=== PATIENT | female | born 1995 | race Caucasian/White ===

== ENCOUNTER 2018-10-29 11:42 | Inpatient (IN) | payer BC ==
[~2018-10-29] VITALS: Ht 160 cm; Wt 61.7 kg
[2018-10-29 11:59] VITALS: Ht 160 cm; Wt 61.7 kg
--- NOTE | 2018-10-29 12:15 | NUR ---
DR LEDBETTER AT BEDSIDE FOR MSE
--- NOTE | 2018-10-29 12:30 | NUR ---
PT REPORTS C/O BLQ ABD PAIN "OVERNIGHT" WITH N/V AND URINARY FREQUENCY PT AAOX4 NO RESP DISTRESS NO OTHER SYMPTOM REPORTED. PT WAS PROVIDED WITH GOWN URINE COLLECTED AND DIPPED. PTS FAMILY AT BEDSIDE AWAITING MD ORDES WILL MONITOR
[2018-10-29 12:38] LABS: PLATELET COUNT 305 x10^3mcL (130-400); RED CELL DISTRIBUTION WIDTH 13.1 % (11.5-14.5)
[2018-10-29 12:46] LABS: BASOPHIL % 0 % (0-2)
[2018-10-29 13:02] LABS: CALCIUM 8.4 mg/dL (8.5-10.1); CARBON DIOXIDE 19.2 mmol/L (21-32); CHLORIDE SERUM 96 mmol/L (98-107); CREATININE SERUM 0.9 mg/dL (0.6-1.0); GFR1 > 60 mL/min; GLUCOSE SERUM 359 mg/dL (74-106); POTASSIUM SERUM 3.7 mmol/L (3.5-5.1); SODIUM SERUM 136 mmol/L (136-145)
[2018-10-29 13:02] LABS: microscopic required? NO
[2018-10-29 13:06] LABS: ALBUMIN 3.8 g/dL (3.4-5.0); ALKALINE PHOSPHATASE 100 U/L (46-116); ALT/SGPT 20 U/L (14-59); AST/SGOT 18 U/L (15-37); BILIRUBIN TOTAL 0.89 mg/dL (0.20-1.00); LIPASE 56 IU/L (73-393); TOTAL PROTEIN, SERUM 8.1 g/dL (6.4-8.2)
--- NOTE | 2018-10-29 13:32 | NUR ---
POC DISCUSSED WITH PT BY DR LEDBETTER PT TO BE ADMITTED. PT AGREED. WILL MONITOR
[2018-10-29] MEDS ORDERED: LANTUS SOLOS100 U/M1 SC (13:33)
[2018-10-29] MEDS ORDERED: HUMALOG100 U/ML (13:34)
[2018-10-29 13:49] LABS: UA SPECIFIC GRAVITY 1.025 (1.005-1.035); urine erythrocyte NEGATIVE (NEGATIVE)
--- NOTE | 2018-10-29 14:46 | NUR ---
PT COMFORTABLE NO DISTRESS VSS SINUS TACH ON CM. FAMILY AT BEDSIDE LOTION FOR LIPS PROVIDED PER PTS REQUEST. CALL LIGHT IN REACH INST TO CALL FOR ANY ASSISTANCE NEEDED WILL MONITOR
--- NOTE | 2018-10-29 14:58 | NUR ---
REPORT GIVEN TO MACK CRUZ RESUMING CARE OF PT IN TELE FLOOR
--- NOTE | 2018-10-29 15:41 | NUR ---
PT TRANSPORTED TO TELE FLOOR ON MANAGER CAFE NO DISTRESS MACK CRUZ RESUMING CARE OF PT IN TELE FLOOR, PT TRANSPORTED BY JAVIER CRUZ AND HERVE EMT VIA [facility]
--- NOTE | 2018-10-29 15:45 | NUR ---
RECEIVED PT VIA [facility] FROM E/D, ACCOMPANIED BY RN AND TRANSPORTER. PT A/A/O X 4, CALM, COOPERATIVE. PT ABLE TO AMBULATE FROM GUERNEY TO BED WITHOUT GAIT OR BALANCE IMPAIRMENT. ON TELE # 1, ST, HR 115, DENIES CHEST PAIN OR DISCOMFORT AT THIS TIME. NO RESPIRATORY DISTRESS NOTED. DENIES PAIN AT THIS TIME. IV SITE RH 20G, CDI. ORIENTED PT TO ROOM, BED CONTROLS, CALL LIGHT SYSTEM. PT VERBALIZED UNDERSTANDING. SIDE RAILS UP X 2, BED IN LOW POSITION. WILL ENDORSE TO ANTHONY GIRON.
[2018-10-29 16:17] LABS: CALCIUM 8.5 mg/dL (8.5-10.1); CARBON DIOXIDE 18.8 mmol/L (21-32); CHLORIDE SERUM 96 mmol/L (98-107); CREATININE SERUM 0.9 mg/dL (0.6-1.0); GFR1 > 60 mL/min; GLUCOSE SERUM 362 mg/dL (74-106); MAGNESIUM 1.8 mg/dL (1.8-2.4); PHOSPHOROUS 5.3 mg/dL (2.5-4.9); POTASSIUM SERUM 3.8 mmol/L (3.5-5.1); SODIUM SERUM 137 mmol/L (136-145)
[2018-10-29 16:26] VITALS: BP 98/47
--- NOTE | 2018-10-29 17:04 | NUR ---
PT C/O OF NAUSEA, MEDICATED PER EMAR.
--- NOTE | 2018-10-29 17:05 | NUR ---
PER DR GAUTHIER GIVE REGULAR INSULIN AT THIS TIME PER SLIDING SCALE
--- NOTE | 2018-10-29 17:13 | NUR ---
PT C/O OF PAIN, BP LOW, PER MD MEDICATE WITH TYLENOL AT THIS TIME. WILL CONTINUE TO MONITOR
--- NOTE | 2018-10-29 18:06 | NUR ---
PT RESTING IN BED WITH NO APPARENT SIGNS OF DISTESS. ON TELE, DENIES CHEST PAIN/PRESSURE/DIZZINESS/STANLEY. RESPIRATIONS EQUAL AND UNLABORED. ON RA, DENIES SOB. ABDOMEN SOFT AND NONTENDER AT THIS TIME. AMBULATORY. SKIN W/D/I. PT DENIES EXCESSIVE PAIN. IV PATENT AND INTACT. BED IN LOW POSIITON. FAMILY PRESENT AT BEDSIDE. WILL CONTINUE TO MONITOR
--- NOTE | 2018-10-29 19:30 | NUR ---
RECIEVED PATIENT AT START OF SHIFT AWAKE, A/O X4. NO SOB ON RA SATTING 99%, LUNGS CTAB. NO COMPLAINT OF PAIN. PATIENT IS ON TELE MONITOR #1 ST AT 112, LAST BP 98/47 (64). LAST BLOOD SUGAR WAS 226 FOR WHICH THE PATIENT RECIEVED 6 UNITS OF REG INSULIN FROM THE DAYSHIFT NURSE. POTTASIUM IS 3.7 IV TO RIGHT HAND INTACT AT 150 ML/HR NS. PATIENT IS AMBULATORY. PLAN IS TO TRANSFER PATIENT TO ICU FOR INSULIN IV ONCE A BED IS AVAILABLE. BED LOCKED AND IN LOWEST POSIITON. CALL LIGHT AND BEDSIDE TABLE WITHIN REACH. WILL CONTINUE TO MONITOR.
[2018-10-29 19:55] LABS: CALCIUM 7.5 mg/dL (8.5-10.1); CARBON DIOXIDE 16.5 mmol/L (21-32); CHLORIDE SERUM 105 mmol/L (98-107); CREATININE SERUM 0.8 mg/dL (0.6-1.0); GFR1 > 60 mL/min; GLUCOSE SERUM 176 mg/dL (74-106); MAGNESIUM 1.6 mg/dL (1.8-2.4); PHOSPHOROUS 1.8 mg/dL (2.5-4.9); SODIUM SERUM 137 mmol/L (136-145)
[2018-10-29 20:03] LABS: POTASSIUM SERUM 2.9 mmol/L (3.5-5.1)
--- NOTE | 2018-10-29 20:04 | NUR ---
RECIEVED CALL FROM LAB REPORTING POTTASIUM CRITICAL VALUE OF 2.9. DR. LAU WAS CALLED AND NOTOFIED AT 2015. NEW BLOOD SUGAR TAKEN AT 1999 IS 156. INSULIN SLIDING SCALE ON HOLD, NO COVERAGE GIVEN. NS INCREASED TO 250 ML/HR PER EMAR AND MD ORDER.
[2018-10-29 20:14] LABS: CHOLESTEROL/HDL RATIO 3.7
[2018-10-29 20:16] LABS: FREE T4 1.2 ng/dL (0.76-1.46); FREE THYROXINE INDEX 2.8 ug/dL (1.4-4.5); T4(THYROXINE) 7.4 ug/dL (4.7-13.3)
[2018-10-29 20:19] LABS: T3 TOTAL 0.68 ng/mL
[2018-10-29 20:35] VITALS: BP 95/43
--- NOTE | 2018-10-29 21:00 | NUR ---
REPORT GIVEN TO ICU, WILL PREPARE PATIENT FOR TRANSFER.
--- NOTE | 2018-10-29 21:20 | NUR ---
Received from [facility] room 240 via bed. Awake, alert and verbally responsive. No respiratory distress noted on room air. Denies pain at this time. Denies n/v. Normal sinus rhythm. Kept comfortable. Will cont.to monitor.
--- NOTE | 2018-10-29 21:34 | NUR ---
FSBS-158. no insulin coverage as ordered. IVF NS @250ml/hr infusing at this time.
--- NOTE | 2018-10-29 22:53 | NUR ---
Insulin drip protocol started. made aware re:blood sugars <200 at this time. Will cont.to monitor.
--- NOTE | 2018-10-29 23:46 | NUR ---
Asleep at this time. D5 0.45%NS @ 150ml/hr infusing. Denies pain. Will cont.to monitor.
[2018-10-30] VITALS: BP 101/57
--- NOTE | 2018-10-30 00:26 | NUR ---
DC ABG x3 STARTING AT 2336. PER DKA PROTOCOL; ONE INITIAL ABG NEEDED. DR. ALMANZAR NOTIFIED; OKAY TO DC 3 REMAINDER ABG ORDERS. WILL CONTINEU TO MONITOR PATIENT.
[2018-10-30 01:07] LABS: CALCIUM 7.4 mg/dL (8.5-10.1); CARBON DIOXIDE 17.9 mmol/L (21-32); CHLORIDE SERUM 106 mmol/L (98-107); CREATININE SERUM 0.7 mg/dL (0.6-1.0); GFR1 > 60 mL/min; GLUCOSE SERUM 186 mg/dL (74-106); MAGNESIUM 1.7 mg/dL (1.8-2.4); PHOSPHOROUS 2.2 mg/dL (2.5-4.9); POTASSIUM SERUM 3.2 mmol/L (3.5-5.1); SODIUM SERUM 138 mmol/L (136-145)
[2018-10-30 04:00] VITALS: BP 94/55
--- NOTE | 2018-10-30 04:10 | NUR ---
Asleep at this time. No significant change in condition noted. No s/s of hypo/hyperglycemia noted. Remained on insulin drip and blood sugars <200. Denies pain. In no apparent distress.
[2018-10-30 05:53] LABS: CALCIUM 8.1 mg/dL (8.5-10.1); CARBON DIOXIDE 22.1 mmol/L (21-32); CHLORIDE SERUM 109 mmol/L (98-107); CREATININE SERUM 0.6 mg/dL (0.6-1.0); GFR1 > 60 mL/min; GLUCOSE SERUM 160 mg/dL (74-106); MAGNESIUM 1.9 mg/dL (1.8-2.4); PHOSPHOROUS 1.5 mg/dL (2.5-4.9); SODIUM SERUM 140 mmol/L (136-145)
[2018-10-30 06:05] LABS: POTASSIUM SERUM 2.9 mmol/L (3.5-5.1)
[2018-10-30 07:00] LABS: PLATELET COUNT 255 x10^3mcL (130-400); RED CELL DISTRIBUTION WIDTH 12.6 % (11.5-14.5)
--- NOTE | 2018-10-30 07:42 | NUR ---
AOX4, BREATHING E/U, NAD. EATING BREAKFAST AT THIS TIME.
[2018-10-30 08:13] LABS: CALCIUM 7.7 mg/dL (8.5-10.1); CARBON DIOXIDE 24.7 mmol/L (21-32); CHLORIDE SERUM 111 mmol/L (98-107); CREATININE SERUM 0.7 mg/dL (0.6-1.0); GFR1 > 60 mL/min; GLUCOSE SERUM 107 mg/dL (74-106); SODIUM SERUM 142 mmol/L (136-145)
[2018-10-30 08:16] LABS: MAGNESIUM 1.8 mg/dL (1.8-2.4); PHOSPHOROUS 1.6 mg/dL (2.5-4.9)
[2018-10-30 08:17] LABS: POTASSIUM SERUM 2.9 mmol/L (3.5-5.1)
--- NOTE | 2018-10-30 08:19 | NUR ---
GAP CLOSED X 2. DR VAZQUEZ PAGEJuhi.
[2018-10-30 08:25] VITALS: BP 101/68
[2018-10-30 10:54] LABS: BAND NEUTROPHIL 36 % (0-10); BASOPHIL 0 % (0-2); MONOCYTE 9 % (0-7); SEGMENTED NEUTROPHILS 24 % (37-75)
[2018-10-30 10:56] LABS: PLATELET MORPHOLOGY PLATELETS NORMAL; rbc morphology (normal/abnorm) NORMAL (NORMAL)
--- NOTE | 2018-10-30 11:00 | NUR ---
PATIENTS MOM CALLED AT THIS TIME, UPDATES PROVIDED.
[2018-10-30 12:00] VITALS: BP 81/39
--- NOTE | 2018-10-30 13:39 | NUR ---
PT RESTING WELL AT THIS TIME, ON PAI GOW DEALER. PATIENT ATE 75% OF MEAL, TOLERATED WELL AND DENIES N/V/D.
--- NOTE | 2018-10-30 17:15 | NUR ---
RECEIVED PT FROM ICU ON A W/C ACCOMPANIED BY FATHER. REPORT GIVEN TO THIS RN BY ANTHONY LEROY. PT IS AAOX4. TELE [address] READING NSR. RESP EVEN AND UNLABORED. LUNG SOUNDS CTA. IV CATH TO RH HAND PATENT WITH NO S/S OR INFECTION OR INFILTRATION NOTED. PT DENIES BEING COLD, CLAMMY OR SHAKY, NO DIZZINESS. DENIES PAIN OR DISCOMFORT. PT ORIENTED TO ROOM AND CALL LIGHT. CALL LIGHT WITHIN REACH. BED IN LOW POSTION.
--- NOTE | 2018-10-30 18:27 | NUR ---
PT IS AAOX 4. DENIES PAIN OR DISCOMFORT. NO DISTRESS NOTED. TELE [address] READING NSR. IV TO RH INTACT, PATENT WITH NO S/S OF INFECTION NOTED. CALL LIGHT WITHIN REACH. FATHER AT BEDSIDE. WILL ENDORSE ALL CARE TO NOC RN.
--- NOTE | 2018-10-30 19:47 | NUR ---
PT RECIEVED AAO REG RESP NO SOB,V/S STABLE,KEPT CLEAN AND DRY TO TOUCH,HL TO THE LAC SITE IS PATENT AND INTACT,BED IN THE LOW POSITION AND LOCKED,CALL LIGHT EASY REACHED AND WILL CONTINUE TO MONITOR.
[2018-10-30 21:34] VITALS: BP 99/63
[2018-10-31 05:34] VITALS: BP 105/65
--- NOTE | 2018-10-31 06:31 | NUR ---
PT HAD A RESTING NIGHT NO CHAGE AT THIS TIME,WILL CONTINUE TO MONITOR.
--- NOTE | 2018-10-31 07:35 | NUR ---
PT IS AAOX4. RESP EVEN AND UNLABORED. LUNG SOUNDS CTA. ON R/A. TELEMONITOR [address] READING NSR. IV CATH TO LAC N/S LOCKED. SITE WNL. ABDOMEN SOFT, NONTENDER, NONDISTENDED. SKIN CDI. NO EDEMA NOTED. PERIPHERAL PULSES PALPABLE. PT DENIES PAIN OR DISCOMFORT AT THIS TIME. CALL LIGHT WITHIN REACH.
--- NOTE | 2018-10-31 08:39 | NUR ---
DUE MEDS GIVEN. PT CALM AND COOPERATIVE. DENIES PAIN OR DISCOMFORT. NO DISTRESS NOTED. CALL LIGHT WITHIN REACH.
[2018-10-31 09:51] VITALS: BP 104/58
--- NOTE | 2018-10-31 11:29 | NUR ---
REPORTED TO THANIA RECINOS NP THAT PT HAS ONE ON HOLD RISS ORDER AND ONE ROUTINE RISS ORDER. NO NEW ORDERS AT THIS TIME. RISS COVERAGE HAS BEEN HELD UNTIL THE ORDERS ARE CLARIFIED.
[2018-10-31 13:25] VITALS: BP 98/62
--- NOTE | 2018-10-31 14:53 | NUR ---
IV CATH N/S LOCKED TO LAC NO LONGER PATENT, REMOVED INTACT. SITE WNL, COVERED WITH GAUZE AND BANDAID. ENDORSED PT AND ALL CARE TO ANTHONY BENITES. REPORT GIVEN. PT DENIES PAIN OR DISCOMFORT AT THIS TIME. NO DISTRESS NOTED. CALL LIGHT WITHIN REACH.
--- NOTE | 2018-10-31 15:00 | NUR ---
ASSUMED CARE FROM ANTHONY LYMAN. PT IS IN THE BATHROOM; MOM IN THE ROOM. PT IS OX4; NO SOB AT RM AIR. NO COMPLAINTS OF PAIN THAT REQUIRE MED AT THIS TIME. SAFETY AND FALL PRECAUTION REINFORCED. WILL CONTINUE TO MONITOR STATUS.
[2018-10-31 16:32] VITALS: BP 94/58
--- NOTE | 2018-10-31 18:29 | NUR ---
NO NEW ACUTE CHANGES. NO COMPLAINTS VOICED; NO SOB AT RM AIR. WILL CONTINUE TO MONITOR STATUS.
[2018-10-31 19:15] VITALS: BP 103/69
--- NOTE | 2018-10-31 19:15 | NUR ---
RECEIVED PT AWAKE ALERT AND VERBALLY RESPONSIVE WITH MOTHER AT BEDSIDE.DENIES ABDOMINAL PAIN AT THIS TIME.TOLERATING DIET WELL.BP 103/69 MMHG,HR 92.WILL CONTINUE TO MONITOR.
--- NOTE | 2018-11-01 04:42 | NUR ---
PT SLEPT WELL.DENIES ABDOMINLA PAIN ALL NIGHT.NO S/S OF HYPO/HYPERGLYCEMIA NOTED.ALL NEEDS MET.WILL CONTINUE TO MONITOR.
[2018-11-01 06:07] VITALS: BP 101/62
[2018-11-01 06:54] LABS: BASOPHIL % 0.3 % (0-2); PLATELET COUNT 274 x10^3mcL (130-400); RED CELL DISTRIBUTION WIDTH 12.3 % (11.5-14.5)
--- NOTE | 2018-11-01 07:12 | NUR ---
ENDORSED BS THIS AM @ 89 MG/DL.ALSO ENDORSED HUMOLOG 50/50 IN AM DOSE NOT YET GIVEN.
[2018-11-01 07:18] LABS: CALCIUM 8.3 mg/dL (8.5-10.1); CARBON DIOXIDE 31.2 mmol/L (21-32); CHLORIDE SERUM 107 mmol/L (98-107); CREATININE SERUM 0.8 mg/dL (0.6-1.0); GFR1 > 60 mL/min; GLUCOSE SERUM 93 mg/dL (74-106); SODIUM SERUM 146 mmol/L (136-145)
--- NOTE | 2018-11-01 07:31 | NUR ---
REPORTED TO THANIA RECINOS NP PT'S K+ LEVEL = 3.0. NO NEW ORDERS AT THIS TIME.
--- NOTE | 2018-11-01 07:35 | NUR ---
PT IS AAOX4. DENIES FEELING COLD, CLAMMY. REPORTS NO PAIN OR DISCOMFORT. RESP EVEN AND UNLABORED. ON R/A. IV CATH TO RH PATENT WITH NO S/S OF INFECTION OR INFILTRATION NOTED. BED IN LOW POSITION. CALL LIGHT WITHIN REACH.
--- NOTE | 2018-11-01 08:30 | NUR ---
LUANN PAGAN PO GIVEN FOR k+ OF 3.0. DUE MEDS GIVEN. DENIES PAIN OR DISCOMFORT AT THIS TIME. NO DISTRESS NOTED. CALL LIGHT WITHIN REACH.
--- NOTE | 2018-11-01 09:16 | NUR ---
REPORTED TO THANIA SCHMITT NP THAT PT'S BS = 88. INSULIN 50/50 HELD. NO NEW ORDERS GIVEN AT THIS TIME.
[2018-11-01 09:17] VITALS: BP 100/64
[2018-11-01 10:30] VITALS: BP 100/64
--- NOTE | 2018-11-01 11:23 | NUR ---
PT DISCHARGED TO HOME IN NO DISTRESS. DISCHARGE INSTRUCTIONS REVIEWED. ALL FORMS SIGNED. IV CATH TO RH REMOVED INTACT. SITE WNL, COVERED WITH GAUZE AND BANDAID. VS: 97.7, 83, 17, 100/64, 98% ON R/A. ALL PERSONAL BELONGINGS TAKEN HOME.
== END 2018-11-01 10:55 | disposition home or self-care (01) | DRG 637 ==
LOC: EDBD 11:42 → ED 11:42 → DU 14:35 → IC 14:35 → DU 15:57 → IC 21:24 → DU 10-30 00:58 → IC 10-30 01:08 → DU 10-30 17:05 → MU 10-31 11:55
PROVIDERS: Emergency Medicine; ADMIT Internal Medicine
DX: E10.10 Type 1 diabetes mellitus with ketoacidosis without coma (principal); K85.90 Acute pancreatitis without necrosis or infection, unspecified; R65.10 Systemic inflammatory response syndrome (SIRS) of non-infectious origin without acute organ dysfunction; K70.10 Alcoholic hepatitis without ascites; E78.5 Hyperlipidemia, unspecified; Z83.3 Family history of diabetes mellitus; Z82.0 Family history of epilepsy and other diseases of the nervous system
CPT/HCPCS: 82962; 84439; J1815; J2405; J3480; J7030; Q0092